=== PATIENT | male | born 1980 | race Caucasian/White ===

== ENCOUNTER 2025-02-17 13:15 | Emergency (ER) | payer MEDICAID, OTHER ==
[~2025-02-17] VITALS: Ht 203.2 cm; Wt 78.3 kg
--- NOTE | 2025-02-17 14:15 | ED.PDOC ---
[place]. trauma (HPI) HPI Comments A 44 year old male presents to the ED c/o left wrist pain and lower back pain s/p fall. Patient states he was standing on a ladder while cutting a tree earlier today and he accidentally slipped off of the third step. Patient reports he tried to catch himself using his left hand and is now experiencing left wrist pain with swelling that is worse with movement. Patient reports he is also experiencing lower back pain. Patient denies head injury, neck injury, LOC, saddle anesthesia, urinary incontinence, bowel incontinence, numbness/tingling of extremities. No other symptoms or modifying factors reported at this time. Chief Complaint: Fall Injury Time Seen by MD: 13:40 Reviewed notes: Nurses Notes, Medications, Allergies Allergies: Coded Allergies: NO KNOWN ALLERGIES (Unverified , 02/17/25) Home Meds Active Scripts Hydrocodone-Acetaminophen (Hydrocodone Bitartrate/AC 5-325 mg) 1 Tab Tab, 1 TAB PO BS for 5 Days, #5 TAB Prov:LATIA MAGUIRE MD 02/19/25 Hydrocodone-Acetaminophen (Hydrocodone Bitartrate/AC 5-325 mg) 1 Tab Tab, 1 TAB PO Q8HP PRN for 2 Days, #6 TAB 0 Refills Prov:CAITLIN JASON NP 02/17/25 Information Source: Patient Mode of Arrival: Ambulatory Severity: Moderate Timing: Hours Duration: Since onset, Hours Prehospital treatment: None Location: Back, (L) Wrist Location of laceration: None Mechanism: Fall Associated signs and symtoms: None Past Medical History PAST MEDICAL HISTORY: Denies Surgical History: Denies all surgeries Family History Family History: Reviewed,noncontributory to illness Social History Smoker: Non-Smoker Alcohol: Denies ETOH Use Drugs: Denies Drug Use Lives In: Home Constitutional: denies: chills, diaphoresis, fatigue, fever, malaise, sweats, weakness, others EENTM: denies: blurred vision, double vision, ear bleeding, ear discharge, ear drainage, ear pain, ear ringing, eye pain, eye redness, hearing loss, mouth pain, mouth swelling, nasal discharge, nose bleeding, nose congestion, nose pain, photophobia, tearing, throat pain, throat swelling, voice changes, others Respiratory: denies: cough, hemoptysis, orthopnea, SOB at rest, shortness of breath, SOB with excertion, stridor, wheezing, others Cardiovascular: denies: chest pain, dizzy spells, diaphoresis, Dyspnea on exertion, edema, irregular heart beat, left arm pain, lightheadedness, palpitations, PND, syncope, others Gastrointestinal: denies: abdomen distended, abdominal pain, blood streaked bowels, constipated, diarrhea, dysphagia, difficulty swallowing, hematemesis, melena, nausea, poor appetite, poor fluid intake, rectal bleeding, rectal pain, vomiting, others Neurological: denies: dizziness, fainting, headache, left sided numbness, left sided weakness, numbness, paresthesia, pre-existing deficit, right sided numbness, right sided weakness, seizure, speech problems, tingling, tremors, weakness, others Musculoskeletal: reports: back pain (Lower back pain), others (Left wrist pain); denies: gout, joint pain, joint swelling, muscle pain, muscle stiffness, neck pain Integumetry: denies: bruises, change in color, change in hair/nails, dryness, laceration, lesions, lumps, rash, wounds, others Allergic/Immunocompromised: denies: Difficulty Healing, Frequent Infections, Hives, Itching, others Hematologic/Lymphatic: denies: anemia, blood clots, easy bleeding, easy bruising, swollen glands, others Endocrine: denies: excessive hunger, excessive sweating, excessive thirst, excessive urination, flushing, intolerance to cold, intolerance to heat, unexplained weight gain, unexplained weight loss, others Psychiatric: denies: anxiety, bipolar disorder, depression, hopeless, panic disorder, schizophrenia, sleepless, suicidal, others All Other Systems: Reviewed and Negative Physical Exam General Appearance: No Apparent Distress, Normal HEENT: Normal ENT Inspection, Pharynx Normal, TMs Normal Neck: Full Range of Motion, Non-Tender, Normal, Normal Inspection Respiratory: Chest Non-Tender, Lungs Clear, No Accessory Muscle Use, No Respiratory Distress, Normal Breath Sounds Cardiovascular: No Edema, No JVD, No Murmur, No Gallop, Normal Peripheral Pulses, Regular Rate/Rhythm Breast Exam: Deferred Gastrointestinal: No Organomegaly, Non Tender, No Pulsatile Mass, Normal Bowel Sounds, Soft Genitalia: Deferred Pelvic: Deferred Rectal: Deferred Extremities: No calf tenderness, Normal capillary refill, No pedal edema, Tender (Tenderness upon palpation noted to left wrist), Other (Swelling and deformity noted to volar and dorsal aspect of left wrist. No open wounds. Neurovascularly sensation intact. Radial pulses 2+. Cap refill less than 3 seconds) Musculoskeletal : Apperance: Normal Neurologic: Alert, oil fire specialist II-XII nml as Tested, No Motor Deficits, Normal Affect, Normal Mood, No Sensory Deficits Cerebellar Function: Normal Reflexes: Normal Skin: Dry, Normal Color, Warm Lymphatic: No Adenopathy Was a procedure done? Was a procedure done?: No Differential Diagnosis Multiple Trauma: Other (Fracture, dislocation) X-Ray, Labs, Meds, VS Vital Signs Date Time Temp Pulse Resp B/P (MAP) Pulse Ox O2 Delivery O2 Flow Rate FiO2 02/17/25 15:58 86 18 98 Room Air 02/17/25 15:58 98.4 86 18 131/80 (97) 98 98.4 02/17/25 13:30 98.7 96 17 136/90 (105) 97 98.7 CLINICAL INDICATION: Fall TECHNIQUE: 3 radiographic views of the left wrist were obtained. Comparison: None FINDINGS/IMPRESSION: There is acute comminuted fracture of the distal radius with intra-articular extension and dorsal angulation. There is also acute mildly displaced fracture of the ulnar styloid. There is associated adjacent soft tissue edema of the wrist and distal forearm. ATED BY: JACLYN PAYTON DO DICTATED DATE/TIME: 02/17/25 1500 SIGNED BY: JACLYN PAYTON DO SIGNED DATE/TIME: 02/17/25 1500 CC: INDICATION: fall from ladder TECHNIQUE: 4 views of the lumbar spine were obtained. COMPARISON: None FINDINGS: There are no acute fractures or subluxations of the lumbar spine. Subtle cortical angulation of the coccyx. IMPRESSION: Subtle cortical angulation of the coccyx may represent normal variant versus minimally displaced fracture. Clinical correlation advised. Otherwise, no acute fracture or subluxation of the lumbar spine. ATED BY: JUSTEN GARCÍA MD DICTATED DATE/TIME: 02/17/25 1500 SIGNED BY: JUSTEN GARCÍA MD SIGNED DATE/TIME: 02/17/25 1500 CC: X-Ray, Labs, Meds, VS Comment A 44 year old male presents to the ED c/o left wrist pain and lower back pain s/p fall Today Patient arrives alert and oriented, ABC's intact, afebrile, vital signs stable, saturating well in room air Diagnostic imaging ordered by me and results interpreted by radiology : XR wrist LT, XR L-spine There is acute comminuted fracture of the distal radius with intra-articular extension and dorsal angulation. There is also acute mildly displaced fracture of the ulnar styloid. There is associated adjacent soft tissue edema of the wrist and distal forearm. Patient was given:[place] 7.5/325mg PO. Tolerated medications with no adverse reaction. A volar splint was placed on the patient's left wrist. Neurovascular sensation was intact on re-evaluation Workup: XR Wrist Findings: Fracture Patient does not currently demonstrate complications of fracture such as compart ment syndrome, arterial or nerve injury. Interventions: Disposition: Patient will be discharged with strict return precautions and follow up with primary MD within 24-48 hours for further evaluation including referral to an orthopedist for follow up within the next 4-7 days for outpatient definitive fracture management. Consult: Orthopedic Surgery. Orthopedic: 1530: I have consulted the on0-call physician relations specialist, Dr. Vu regarding this patient's x ray results and he has said the patient can follow up with [facility] tomorrow from [phone] tomorrow morning to schedule outpatient surgery for his fracture. Additional MDM Review of External, Non-ED records: External records reviewed. Discussion with independent historian History obtained from the patient Chronic conditions affecting care: None Social determinants of health affecting care: None Consideration of admission (observation or admission): I considered escalation of care to admission for this patient, however given the reassuring workup, the patient is safe for outpatient management. Discussion with the Radiology: No Tests considered but not performed: None Prescription medication considered but not given: Images Reviewed?: Images reviewed and evaluated by me Time of 1ST Reevaluation: 16:09 Reevaluation 1ST: Improved Consultation: Other (Orthopedic: 1530: I have consulted the on0-call physician relations specialist, Dr. Vu regarding this patient's x ray results and he has said the patient can follow up with the Ortho clinic at this hospital tomorrow from [phone] tomorrow morning to schedule outpatient surgery for his fracture.) Patient Education/Counseling: Diagnosis, Treatment, Need For Follow Up Family Education/Counseling: Diagnosis, Treatment, Need For Follow Up Departure 1 Departure Time of Disposition: 16:11 Impression: Primary Impression: Radius distal fracture Qualified Codes: S52.502A - Unspecified fracture of the lower end of left radius, initial encounter for closed fracture Additional Impression: Fracture of ulnar styloid Qualified Codes: S52.612A - Displaced fracture of left ulna styloid process, initial encounter for closed fracture Disposition: 01 HOME / SELF CARE / HOMELESS Condition: Stable Additional Instructions: Orthopedic: 1530: I have consulted the on-call physician relations specialist, Dr. Vu regarding this patient's x ray results and he has said the patient can follow up with the Orth[facility] tomorrow from [phone] tomorrow morning to schedule outpatient surgery for his fracture. e-Prescriptions Hydrocodone-Acetaminophen (Hydrocodone Bitartrate/AC 5-325 mg) 1 Tab Tab 1 TAB PO Q8HP PRN for 2 Days, #6 TAB 0 Refills Prov: CAITLIN JASON NP 02/17/25 Discharged With: Self Critical Care Note Critical Care Time?: No Stability Stability form required: No Heart Score Heart Score: Heart Score Response (Comments) Value History N/A 0 EKG N/A 0 Age N/A 0 Risk Factors N/A 0 Troponin N/A 0 Total 0 I personally scribed for CAITLIN JASON SPIN TANK TENDER ([email or web address]) on 02/17/25 at 14:15. Electronically submitted by Malcolm Thomas ([email or web address]). I personally scribed for CAITLIN JASON SPIN TANK TENDER ([email or web address]) on 02/17/25 at 15:34. Electronically submitted by Malcolm Thomas ([email or web address]). I personally scribed for CAITLIN JASON SPIN TANK TENDER ([email or web address]) on 02/17/25 at 15:51. Electronically submitted by Malcolm Thomas ([employer]). I personally scribed for CAITLIN JASON SPIN TANK TENDER ([email or web address]) on 02/17/25 at 16:04. Electronically submitted by Malcolm Thomas ([employer]). CAITLIN JASON SPIN TANK TENDER Feb 17, 2025 14:15
--- NOTE | 2025-02-17 15:02 | DVH ---
INDICATION: fall from ladder TECHNIQUE: 4 views of the lumbar spine were obtained. COMPARISON: None FINDINGS: There are no acute fractures or subluxations of the lumbar spine. Subtle cortical angulation of the coccyx. IMPRESSION: Subtle cortical angulation of the coccyx may represent normal variant versus minimally displaced frac ture. Clinical correlation advised. Otherwise, no acute fracture or subluxation of the lumbar spine.
--- NOTE | 2025-02-17 15:02 | DVH ---
CLINICAL INDICATION: Fall TECHNIQUE: 3 radiographic views of the left wrist were obtained. Comparison: None FINDINGS/IMPRESSION: There is acute comminuted fracture of the distal radius with intra-articular extension and dorsal ang ulation. There is also acute mildly displaced fracture of the ulnar styloid. There is associated adj acent soft tissue edema of the wrist and distal forearm.
[2025-02-17] MEDS: HYDROcodone-ACET 7.5/325MG TAB PO ONE (15:51)
[2025-02-17 15:58] VITALS: BP 131/80; PULSE 86; RESP 18; TEMP 98.4; O2SAT 98
[2025-02-17] MEDS ORDERED: HYDR-4902 PO (16:12)
== END 2025-02-17 16:47 | disposition home or self-care (01) ==
LOC: ER 13:15
DX: S52.572A Other intraarticular fracture of lower end of left radius, initial encounter for closed fracture (principal); S52.612A Displaced fracture of left ulna styloid process, initial encounter for closed fracture; W11.XXXA Fall on and from ladder, initial encounter; Y93.89 Activity, other specified; Y92.89 Other specified places as the place of occurrence of the external cause; Y99.8 Other external cause status
CPT/HCPCS: 29125; 72100; 73110

== ENCOUNTER 2025-02-19 13:09 | Emergency (ER) | payer MEDICAID ==
[~2025-02-19] VITALS: Ht 203.2 cm; Wt 77.2 kg
[~2025-02-19 13:09] MED LIST: HYDR-4902 PO
--- NOTE | 2025-02-19 14:06 | ED.PDOC ---
History of Present Illness HPI Comments 44-year-old male with no PMHx presents with a chief complaint of muscle pain s/p fracture x last week. Patient states that he fractured his left forearm last week and has been trying to follow up with orthopedics and pain management, but is waiting for prior authorization from [facility]. Patient mentions that he is just here for pain control/management until he can be seen properly at pain management clinic. Time Seen by MD: 14:00 Reviewed Notes: Medications, Allergies Allergies: Coded Allergies: NO KNOWN ALLERGIES (Unverified , 02/17/25) Home Meds Active Scripts Hydrocodone-Acetaminophen (Hydrocodone Bitartrate/AC 5-325 mg) 1 Tab Tab, 1 TAB PO Q8HP PRN for 2 Days, #6 TAB 0 Refills Prov:ERENCAITLINFunmi Banda NP 02/17/25 Information Source: Patient Mode of Arrival: Ambulatory Severity: Moderate Timing: Days Duration: Since onset Prehospital treatment: None Past Medical History PAST MEDICAL HISTORY: Denies Surgical History: Denies all surgeries Family History Family History: Reviewed,noncontributory to illness Social History Smoker: Non-Smoker Alcohol: Denies ETOH Use Drugs: Denies Drug Use Lives In: Home Constitutional: denies: chills, diaphoresis, fatigue, fever, malaise, sweats, weakness, others EENTM: denies: blurred vision, double vision, ear bleeding, ear discharge, ear drainage, ear pain, ear ringing, eye pain, eye redness, hearing loss, mouth pain, mouth swelling, nasal discharge, nose bleeding, nose congestion, nose pain, photophobia, tearing, throat pain, throat swelling, voice changes, others Respiratory: denies: cough, hemoptysis, orthopnea, SOB at rest, shortness of breath, SOB with excertion, stridor, wheezing, others Cardiovascular: denies: chest pain, dizzy spells, diaphoresis, Dyspnea on exer tion, edema, irregular heart beat, left arm pain, lightheadedness, palpitations, PND, syncope, others Gastrointestinal: denies: abdomen distended, abdominal pain, blood streaked bowels, constipated, diarrhea, dysphagia, difficulty swallowing, hematemesis, melena, nausea, poor appetite, poor fluid intake, rectal bleeding, rectal pain, vomiting, others Genitourinary: denies: burning, dysuria, flank pain, frequency, hematuria, incontinence, penile discharge, penile sore, pain, testicle pain, testicle swelling, urgency, others Neurological: denies: dizziness, fainting, headache, left sided numbness, left sided weakness, numbness, paresthesia, pre-existing deficit, right sided numbness, right sided weakness, seizure, speech problems, tingling, tremors, weakness, others Musculoskeletal: reports: muscle pain; denies: back pain, gout, joint pain, joint swelling, muscle stiffness, neck pain, others Integumetry: denies: bruises, change in color, change in hair/nails, dryness, laceration, lesions, lumps, rash, wounds, others Allergic/Immunocompromised: denies: Difficulty Healing, Frequent Infections, Hives, Itching, others Hematologic/Lymphatic: denies: anemia, blood clots, easy bleeding, easy bruising, swollen glands, others Endocrine: denies: excessive hunger, excessive sweating, excessive thirst, excessive urination, flushing, intolerance to cold, intolerance to heat, unexplained weight gain, unexplained weight loss, others Psychiatric: denies: anxiety, bipolar disorder, depression, hopeless, panic disorder, schizophrenia, sleepless, suicidal, others All Other Systems: Reviewed and Negative Physical Exam General Appearance: Moderate Distress, Normal HEENT: Normal ENT Inspection, Pharynx Normal, TMs Normal Neck: Full Range of Motion, Non-Tender, Normal, Normal Inspection Respiratory: Chest Non-Tender, Lungs Clear, No Accessory Muscle Use, No Respiratory Distress, Normal Breath Sounds Cardiovascular: No Edema, No JVD, No Murmur, No Gallop, Normal Peripheral Pulses, Regular Rate/Rhythm Breast Exam: Deferred Gastrointestinal: No Organomegaly, Non Tender, No Pulsatile Mass, Normal Bowel Sounds, Soft Genitalia: Deferred Pelvic: Deferred Rectal: Deferred Extremities: No calf tenderness, Normal capillary refill, Normal inspection, Normal range of motion, Non-tender, No pedal edema Musculoskeletal : Apperance: Normal Neurologic: Alert, glaze maker II-XII nml as Tested, No Motor Deficits, Normal Affect, Normal Mood, No Sensory Deficits Cerebellar Function: NOT DONE Reflexes: NOT DONE Skin: Dry, Normal Color, Warm, Other (Splint in the left forearm) Peripheral Pulses: 3+ Radial (R), 3+ Radial (L) Lymphatic: No Adenopathy Was a procedure done? Was a procedure done?: No Differential Dx Considerations may include: Pain control X-Ray, Labs, Meds, VS Vital Signs Date Time Temp Pulse Resp B/P (MAP) Pulse Ox O2 Delivery O2 Flow Rate FiO2 02/19/25 14:17 97.9 106 16 141/74 (96) 96 97.9 Current Medications Medications (Trade) Dose Ordered Sig/Diana Route Start Time Stop Time Status Last Admin Acetaminophen/ Hydrocodone Bitart ([place] 10/325MG Tab) 1 tab ONCE ONCE PO 02/19/25 14:15 02/19/25 14:16 DC 02/19/25 14:43 Patient alert. Status post forearm injury. Vitals stable. Answering questions. Was given [place]. No leg swelling. No shortness a breath. No chest pain. Saturation pristine on room air. Was given prescription of [place]. Good pulses. Explained to the patient. Was told to follow up with his primary care physician. Was told to come back if there is any problem. Time of 1ST Reevaluation: 14:30 Reevaluation 1ST: Unchanged Patient Education/Counseling: Diagnosis, Treatment, Need For Follow Up Family Education/Counseling: No Family Present SEPSIS Sepsis Screen Vital Signs Date Time Temp Pulse Resp B/P (MAP) Pulse Ox O2 Delivery O2 Flow Rate FiO2 02/19/25 14:17 97.9 106 16 141/74 (96) 96 97.9 Medications Medications Dose Ordered Sig/Diana Route Start Time Stop Time Status Last Admin Dose Admin Acetaminophen/ Hydrocodone Bitart 1 tab ONCE ONCE PO 02/19/25 14:15 02/19/25 14:16 DC 02/19/25 14:43 Departure 1 Departure Time of Disposition: 15:37 Impression: Primary Impression: Fracture of ulnar styloid Qualified Codes: S52.612A - Displaced fracture of left ulna styloid process, initial encounter for closed fracture Additional Impression: Radius distal fracture Qualified Codes: S52.532S - Colles' fracture of left radius, sequela Disposition: 01 HOME / SELF CARE / HOMELESS Condition: Good e-Prescriptions Hydrocodone-Acetaminophen (Hydrocodone Bitartrate/AC 5-325 mg) 1 Tab Tab 1 TAB PO BS for 5 Days, #5 TAB Prov: LATIA MAGUIRE MD 02/19/25 Discharged With: Self Critical Care Note Critical Care Time?: No Stability Stability form required: No Heart Score Heart Score: Heart Score Response (Comments) Value History N/A 0 EKG N/A 0 Age N/A 0 Risk Factors N/A 0 Troponin N/A 0 Total 0 I personally scribed for LATIA MAGUIRE MD ([email or web address]) on 02/19/25 at 14:06. Electronically submitted by Que Villegas ([email or web address]). LATIA MAGUIRE MD Feb 19, 2025 14:06
[2025-02-19] MEDS: HYDROcodone-ACET 10/325MG TAB PO ONE (14:43)
[2025-02-19] MEDS ORDERED: HYDR-4902 PO (15:39)
[2025-02-19 15:43] VITALS: BP 124/80; PULSE 92; RESP 17; TEMP 97.9; O2SAT 96
== END 2025-02-19 15:48 | disposition home or self-care (01) ==
LOC: ER 13:09
DX: S52.612A Displaced fracture of left ulna styloid process, initial encounter for closed fracture (principal); S52.502A Unspecified fracture of the lower end of left radius, initial encounter for closed fracture; Z79.899 Other long term (current) drug therapy; X58.XXXA Exposure to other specified factors, initial encounter; Y93.89 Activity, other specified; Y92.89 Other specified places as the place of occurrence of the external cause; Y99.8 Other external cause status

== ENCOUNTER 2025-03-10 10:35 | Inpatient (IN) | payer MEDICAID ==
[~2025-03-10] VITALS: Ht 203.2 cm; Wt 80.2 kg
--- NOTE | 2025-03-10 11:09 | ED.PDOC ---
Musculoskeletal HPI Comments 44 y/o M, presents to the ED for CC of s/p fall fracture. Patient states, that he fell off a ladder x4zaooi ago on (02/17/25) and was supposed to undergo surgery for a left distal radius fracture however, d/t insurance complications he was unable to have the surgery. Patient reports, that he was seen at [facility] for possible surgery x3days ago; endorses surgery being canceled. At this time patient c/o 10/10 pain to his left arm. Patient denies fever, chills, nausea, or vomiting. No other symptoms or modifying factors present at this time... Chief Complaint: Upper Extremity Time Seen by MD: 11:05 Primary Care Provider: UNKNOWN Reviewed Notes: Nurses Notes, Medications, Allergies Allergies: Coded Allergies: NO KNOWN ALLERGIES (Unverified , 02/17/25) Home Meds Active Scripts Hydrocodone-Acetaminophen (Hydrocodone Bitartrate/AC 10-325 mg) 1 Tab Tab, 1 TAB PO TID for 10 Days, #30 TAB Prov:VINCENZO MOSELEY MD 03/12/25 Discontinued Scripts Hydrocodone-Acetaminophen (Hydrocodone Bitartrate/AC 5-325 mg) 1 Tab Tab, 1 TAB PO BS for 5 Days, #5 TAB Prov:LATIA MAGUIRE MD 02/19/25 Hydrocodone-Acetaminophen (Hydrocodone Bitartrate/AC 5-325 mg) 1 Tab Tab, 1 TAB PO Q8HP PRN for 2 Days, #6 TAB 0 Refills Prov:CAITLIN JASON NP 02/17/25 Information Source: Patient Mode of Arrival: Ambulatory Location: Left Extremity Location: Arm Timing: Weeks Prehospital treatment: None Severity: Moderate Able to Move Extremity: No Pain: Moderate Mechanism: Other (FALL) Circumstances: Fall Onset of Symptoms: After Trauma Symptoms: Pain DVT Risk Factors: NONE Last Tetanus: Unknown Associated signs and symptoms: Arm pain, Wrist pain Past Medical History PAST MEDICAL HISTORY: Denies Surgical History: Denies all surgeries Family History Family History: Reviewed,noncontributory to illness Social History Smoker: Non-Smoker Alcohol: Denies ETOH Use Drugs: Denies Drug Use Lives In: Home Constitutional: denies: chills, diaphoresis, fatigue, fever, malaise, sweats, weakness, others EENTM: denies: blurred vision, double vision, ear bleeding, ear discharge, ear drainage, ear pain, ear ringing, eye pain, eye redness, hearing loss, mouth pain, mouth swelling, nasal discharge, nose bleeding, nose congestion, nose pain, photophobia, tearing, throat pain, throat swelling, voice changes, others Respiratory: denies: cough, hemoptysis, orthopnea, SOB at rest, shortness of breath, SOB with excertion, stridor, wheezing, others Cardiovascular: denies: chest pain, dizzy spells, diaphoresis, Dyspnea on exertion, edema, irregular heart beat, left arm pain, lightheadedness, palpitations, PND, syncope, others Gastrointestinal: denies: abdomen distended, abdominal pain, blood streaked bowels, constipated, diarrhea, dysphagia, difficulty swallowing, hematemesis, melena, nausea, poor appetite, poor fluid intake, rectal bleeding, rectal pain, vomiting, others Genitourinary: denies: burning, dysuria, flank pain, frequency, hematuria, incontinence, penile discharge, penile sore, pain, testicle pain, testicle swelling, urgency, others Neurological: denies: dizziness, fainting, headache, left sided numbness, left sided weakness, numbness, paresthesia, pre-existing deficit, right sided nu mbness, right sided weakness, seizure, speech problems, tingling, tremors, weakness, others Musculoskeletal: reports: others (left arm pain); denies: back pain, gout, joint pain, joint swelling, muscle pain, muscle stiffness, neck pain Integumetry: denies: bruises, change in color, change in hair/nails, dryness, laceration, lesions, lumps, rash, wounds, others Allergic/Immunocompromised: denies: Difficulty Healing, Frequent Infections, Hives, Itching, others Hematologic/Lymphatic: denies: anemia, blood clots, easy bleeding, easy bruising, swollen glands, others Endocrine: denies: excessive hunger, excessive sweating, excessive thirst, excessive urination, flushing, intolerance to cold, intolerance to heat, unexplained weight gain, unexplained weight loss, others Psychiatric: denies: anxiety, bipolar disorder, depression, hopeless, panic disorder, schizophrenia, sleepless, suicidal, others All Other Systems: Reviewed and Negative Physical Exam General Appearance: No Apparent Distress, Normal HEENT: Normal ENT Inspection, Pharynx Normal Neck: Full Range of Motion, Non-Tender, Normal, Normal Inspection Respiratory: Chest Non-Tender, Lungs Clear, No Accessory Muscle Use, No Respiratory Distress, Normal Breath Sounds Cardiovascular: No Murmur, No Gallop, Regular Rate/Rhythm Breast Exam: Deferred Gastrointestinal: No Organomegaly, Non Tender, No Pulsatile Mass, Normal Bowel Sounds, Soft Genitalia: Deferred Pelvic: Deferred Rectal: Deferred Extremities: No calf tenderness, Normal capillary refill, Normal inspection, Normal range of motion, Non-tender, No pedal edema Musculoskeletal : Location: Left Extremity Location: Arm (left distal radius Fx. Open wounds. No ecchymosis . Pain with flexion-extension of the wrist. Radial pulses 2+. 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 Was a procedure done?: No Differential Diagnosis EXT Differential Diagnosis: Fracture X-Ray, Labs, Meds, VS Vital Signs Date Time Temp Pulse Resp B/P (MAP) Pulse Ox O2 Delivery O2 Flow Rate FiO2 03/10/25 13:36 98.9 89 20 101/67 (78) 93 98.9 03/10/25 11:09 89 18 95 Room Air 03/10/25 11:09 90 18 131/78 (95) 95 03/10/25 11:04 99.3 98 17 135/77 (96) 96 99.3 Lab Test 03/10/25 11:21 03/10/25 11:00 Range/Units White Blood Count 10.7 4.4-10.8 10^3/uL Red Blood Count 4.08 L 4.5-5.90 10^6/uL Hemoglobin 14.2 13.5-17.5 g/dL Hematocrit 41.7 41.0-53.0 % Mean Corpuscular Volume 102.1 H 80.0-100.0 fL Mean Corpuscular Hemoglobin 34.8 H 28.0-32.0 pg Mean Corpuscular Hemoglobin Concent 34.1 32.0-36.0 g/dL Red Cell Distribution Width 14.5 H 11.8-14.3 % Platelet Count 386 140-450 10^3/uL Mean Platelet Volume 8.2 6.9-10.8 fL Neutrophils (%) (Auto) 69.4 37.0-80.0 % Lymphocytes (%) (Auto) 21.0 10.0-50.0 % Monocytes (%) (Auto) 6.8 0.0-12.0 % Eosinophils (%) (Auto) 1.8 0.0-7.0 % Basophils (%) (Auto) 1.0 0.0-2.0 % Neutrophils # (Auto) 7.4 1.6-8.6 10 ^3/uL Lymphocytes # (Auto) 2.2 0.4-5.4 10 ^3/uL Monocytes # (Auto) 0.7 0-1.3 10 ^3/uL Eosinophils # (Auto) 0.2 0-0.8 10 ^3/uL Basophils # (Auto) 0.1 0-0.2 10 ^3/uL Nucleated Red Blood Cells 0.0 % Sodium Level 138 136-145 mmol/L Potassium Level 3.8 3.5-5.1 mmol/L Chloride Level 107 98-107 mmol/L Carbon Dioxide Level 21 20-31 mmol/L Anion Gap 10 5-15 Blood Urea Nitrogen 10 9-23 mg/dL Creatinine 1.04 0.700-1.30 mg/dL Glomerular Filtration Rate Calc 91 >90 mL/min BUN/Creatinine Ratio 9.6 L 10.0-20.0 Serum Glucose 189 H 74-106 mg/dL Hemoglobin A1c 4.9 <5.7 % A1C Calcium Level 10.1 8.7-10.4 mg/dL Hepatitis B Surface Antigen Negative Negative Hepatitis C Antibody Negative Negative Urine Color Light-yellow Yellow Urine Clarity Clear Clear Urine pH 5.5 5.0-9.0 Urine Specific [place] 1.017 1.001-1.035 Urine Protein Negative Negative Urine Ketones Negative Negative Urine Blood Negative Negative /uL Urine Nitrite Negative Negative Urine Bilirubin Negative Negative Urine Urobilinogen Normal Negative mg/dL Urine Leukocyte Esterase Negative Negative /uL Urine RBC None seen 0 - 3 /hpf Urine Microscopic WBC 1 0-3 /HPF Urine Squamous Epithelial Cells None seen <5 /hpf Urine Bacteria None seen None Seen /hpf Urine Mucus Few None Seen Urine Sperm Present None Seen /hpf Urine Glucose Normal Normal mg/dL [facility] [id number] [facility] [address] Ph: [phone] DIAGNOSTIC IMAGING Diagnostic Imaging Report : [id number] Signed PATIENT: LUCILLE HALEY ACCT: [id number] UNIT: [id number] : 1980 LOC: ER ROOM / BED: / AGE / SEX: 44 / M ADM STATUS: REG ER SERVICE 1106 ORDERING PHYSICIAN: CAITLIN JASON NP PROCEDURE(s): LWRI - L WRIST 3+ VIEW XRAY REASON: hx of fracture. RuiYison study ORDER NUMBER(s): [id number], ACCESSION NUMBER(s): [id number] CLINICAL INDICATION: hx of fracture. neymarson study TECHNIQUE: XY L WRIST 3+ VIEW XRAY Comparison: XY L WRIST 3+ VIEW XRAY on DOS: 02/17/25 FINDINGS/IMPRESSION: : Overlying cast obscures bony and soft-tissue detail. Redemonstration of displaced fractures of the styloid process of the ulna and distal radial metaphysis. ATED BY: JUSTEN GARCÍA MD DICTATED DATE/TIME: 03/10/251134 SIGNED BY: JUSTEN GARCÍA MD SIGNED DATE/TIME: 03/10/25 113 CC: X-Ray, Labs, Meds, VS Comment 44 y/o M, presents to the ED for CC of s/p fall fracture. Patient arrives alert and oriented, ABC's intact, afebrile, vital signs stable, saturating well in room air Diagnostic imaging ordered by me and results interpreted by radiology : LEFT WRIST XY Overlying cast obscures bony and soft-tissue detail. Redemonstration of displaced fractures of the styloid process of the ulna and distal radial metaphysis. The patient was given [place] 10 in the emergency department with no adverse reactions. The patient's workup reveals that the patient needs further evaluation and ortho evaluation Patient verbalized understanding of the above and is awaiting further evaluation by the admitting service. Time of 1ST Reevaluation: 11:35 Reevaluation 1ST: Unchanged Patient Education/Counseling: Diagnosis, Treatment Family Education/Counseling: No Family Present Departure 1 Departure Time of Disposition: 12:36 Impression: Primary Impression: Fracture of ulnar styloid Qualified Codes: S52.612A - Displaced fracture of left ulna styloid process, initial encounter for closed fracture Additional Impression: Radius distal fracture Qualified Codes: S52.502A - Unspecified fracture of the lower end of left radius, initial encounter for closed fracture Disposition: ADMITTED INPATIENT Condition: Fair e-Prescriptions Hydrocodone-Acetaminophen (Hydrocodone Bitartrate/AC 10-325 mg) 1 Tab Tab 1 TAB PO TID for 10 Days, #30 TAB Prov: VINCENZO MOSELEY MD 03/12/25 Critical Care Note Critical Care Time?: No Stability Stability form required: No Heart Score Heart Score: Heart Score Response (Comments) Value History N/A 0 EKG N/A 0 Age N/A 0 Risk Factors N/A 0 Troponin N/A 0 Total 0 I personally scribed for CAITLIN JASON STOCKBROKER ([email or web address]) on 03/10/25 at 11:09. Electronically submitted by Milvia Bowie ([email or web address]). I personally scribed for CAITLIN JASON STOCKBROKER ([email or web address]) on 03/10/25 at 11:30. Electronically submitted by Milvia Bowie ([email or web address]). I personally scribed for CAITLIN JASON STOCKBROKER ([email or web address]) on 03/10/25 at 12:17. Electronically submitted by Milvia Bowie ([email or web address]). I personally scribed for CAITLIN JASON STOCKBROKER ([email or web address]) on 03/10/25 at 12:47. Electronically submitted by Milvia Bowie ([email or web address]). CAITLIN JASON STOCKBROKER Mar 10, 2025 11:09
--- NOTE | 2025-03-10 11:38 | DVH ---
CLINICAL INDICATION: hx of fracture. comparisson study TECHNIQUE: XY L WRIST 3+ VIEW XRAY Comparison: XY L WRIST 3+ VIEW XRAY on DOS: 02/17/25 FINDINGS/IMPRESSION: : Overlying cast obscures bony and soft-tissue detail. Redemonstration of displaced fractures of the s tyloid process of the ulna and distal radial metaphysis.
[2025-03-10 11:49] LABS: Urine Protein, UAD Negative (Negative)
[2025-03-10 11:59] LABS: Hematocrit 41.7 % (41.0-53.0); Hemoglobin 14.2 g/dL (13.5-17.5); Nucleated Red Blood Cells % 0.0 %
[2025-03-10 12:02] LABS: Mean Corpuscular Hemoglobin 34.8 pg (28.0-32.0); Mean Corpuscular Volume 102.1 fL (80.0-100.0)
[2025-03-10 12:06] LABS: Chloride 107 mmol/L (98-107); Potassium 3.8 mmol/L (3.5-5.1); Sodium 138 mmol/L (136-145)
[2025-03-10 12:07] LABS: Anion Gap 10 (5-15); Calcium 10.1 mg/dL (8.7-10.4); Carbon Dioxide 21 mmol/L (20-31)
[2025-03-10 12:12] LABS: BUN/Creatinine Ratio 9.6 (10.0-20.0); Blood Urea Nitrogen 10 mg/dL (9-23); Glucose 189 mg/dL (74-106)
[2025-03-10] MEDS ORDERED: DOCUSATE SOD 100 MG CAP PO PRN (13:00)
[2025-03-10] MEDS ORDERED: ACETAMINOPHEN 325 MG TAB PO PRN (13:00)
[2025-03-10] MEDS: HYDROcodone-ACET 10/325MG TAB PO ONE (13:50)
--- NOTE | 2025-03-10 15:50 | DVHHP2 ---
History of Present Illness Reason for Visit: Fracture of ulnar styloid History of Present Illness The patient is a 44-year-old male who denies past medical history presented to [facility] ED with complaint of left wrist pain. Patient reports that he fell off a ladder 3 weeks ago and was supposed to undergo surgery for left distal radius fracture, however, given eligibility of insurance, he was unable to have the surgery done at [facility]. Patient was seen and evaluated in the ED, laboratory data shows WBC 10.7, platelets 386, sodium 138, potassium 3.8, BUN 10, creatinine 1.04, glucose 189, hemoglobin A1c 4.9, calcium 10.1, blood pressure 131/78, heart rate 90, temperature 99.3 F, O2 saturation 95% on room air. Left wrist x-ray revealing overlying cast obscures bony and soft tissue detail; redemonstration of displaced fractures of the styloid process of the ulna and distal radial metaphysis. Please see medication orders section in the computer. On my assessment, patient denied chest pain, no headache, no dizziness, no shortness of breaths, no nausea, no vomiting, no fever, no chills. Patient was admitted for further evaluation and medical management. Past Medical History Denies past medical history Past Surgical History Denies all surgeries Family History Reviewed, noncontributory to the management of this case. Past Social History The patient lives at home, denies smoking, alcohol or illicit drugs abuse. Review of Systems Constitutional: No: Fever, Chills, Sweats, Weakness, Malaise, Other Eyes: No: Pain, Vision change, Conjunctivae inflammation, Eyelid inflammation, Other, Redness ENT: No: Ear pain, Ear discharge, Nose pain, Nose discharge, Nose congestion, Mouth pain, Mouth swelling, Throat pain, Throat swelling, Other Respiratory: No: Cough, Dry, Shortness of breath, SOB with excertion, Wheezing, Hemoptysis, Pleuritic Pain, Sputum, Wheezing, Other Cardiovascular: No: Chest Pain, Palpitations, Orthopnea, Paroxysmal Noc. Dyspnea, Edema, Lt Headedness, Other Gastrointestinal: No: Nausea, Vomiting, Abdominal Pain, Diarrhea, Constipation, Melena, Hematochezia, Other Genitourinary: No Dysuria, No Frequency, No Incontinence, No Hematuria, No Retention, No Other Musculoskeletal: other (left arm pain); No: neck pain, shoulder pain, arm pain, back pain, hand pain, leg pain, foot pain Skin: No: Rash, Lesions, Jaundice, Bruising, Other Neurological: No: Weakness, Numbness, Incoordination, Change in speech, Confusion, Seizures, Other Allergies: Coded Allergies: NO KNOWN ALLERGIES (Unverified , 02/17/25) Medications Current Medications Medications Dose Ordered Sig/Diana Route Start Time Stop Time Status Last Admin Dose Admin Acetaminophen/ Hydrocodone Bitart 1 tab Q4HP PRN PO 03/10/25 13:00 Ondansetron HCl 4 mg Q4HP PRN IV 03/10/25 13:00 Docusate Sodium 100 mg BIDPRN PRN PO 03/10/25 13:00 Acetaminophen 650 mg Q6HP PRN PO 03/10/25 13:00 Morphine Sulfate 2 mg Q4HPRN PRN IV 03/10/25 13:00 Exam Vital Signs Vital Signs Date Time Temp Pulse Resp B/P (MAP) Pulse Ox O2 Delivery O2 Flow Rate FiO2 03/10/25 13:36 98.9 89 20 101/67 (78) 93 98.9 03/10/25 11:09 Room Air General Appearance: Alert, Oriented X3, Cooperative, No acute distress HEENT: Atraumatic, PERRLA, EOMI, Mucous membr. moist/pink Respiratory: Clear to auscultation, Normal air movement Cardiovascular: Regular rate, Normal S1, Normal S2, No murmurs Abdominal: Normal bowel sounds, Soft, No tenderness, No hepatospenomegaly, No masses Extremities: No clubbing, No cyanosis, No edema, Normal pulses, Other (Left arm tenderness) Skin: No rashes, No breakdown, No significant lesion Neuro: Normal gait, Normal speech, Normal tone, Sensation intact, Cranial nerves 3-12 NL, Reflexes 2+, Other (Pain) Psych/Mental Status: Mental status NL, Mood NL Labs/Xrays Labs Test 03/10/25 11:21 03/10/25 11:00 Range/Units White Blood Count 10.7 4.4-10.8 10^3/uL Red Blood Count 4.08 L 4.5-5.90 10^6/uL Hemoglobin 14.2 13.5-17.5 g/dL Hematocrit 41.7 41.0-53.0 % Mean Corpuscular Volume 102.1 H 80.0-100.0 fL Mean Corpuscular Hemoglobin 34.8 H 28.0-32.0 pg Mean Corpuscular Hemoglobin Concent 34.1 32.0-36.0 g/dL Red Cell Distribution Width 14.5 H 11.8-14.3 % Platelet Count 386 140-450 10^3/uL Mean Platelet Volume 8.2 6.9-10.8 fL Neutrophils (%) (Auto) 69.4 37.0-80.0 % Lymphocytes (%) (Auto) 21.0 10.0-50.0 % Monocytes (%) (Auto) 6.8 0.0-12.0 % Eosinophils (%) (Auto) 1.8 0.0-7.0 % Basophils (%) (Auto) 1.0 0.0-2.0 % Neutrophils # (Auto) 7.4 1.6-8.6 10 ^3/uL Lymphocytes # (Auto) 2.2 0.4-5.4 10 ^3/uL Monocytes # (Auto) 0.7 0-1.3 10 ^3/uL Eosinophils # (Auto) 0.2 0-0.8 10 ^3/uL Basophils # (Auto) 0.1 0-0.2 10 ^3/uL Nucleated Red Blood Cells 0.0 % Sodium Level 138 136-145 mmol/L Potassium Level 3.8 3.5-5.1 mmol/L Chloride Level 107 98-107 mmol/L Carbon Dioxide Level 21 20-31 mmol/L Anion Gap 10 5-15 Blood Urea Nitrogen 10 9-23 mg/dL Creatinine 1.04 0.700-1.30 mg/dL Glomerular Filtration Rate Calc 91 >90 mL/min BUN/Creatinine Ratio 9.6 L 10.0-20.0 Serum Glucose 189 H 74-106 mg/dL Hemoglobin A1c 4.9 <5.7 % A1C Calcium Level 10.1 8.7-10.4 mg/dL Urine Color Light-yellow Yellow Urine Clarity Clear Clear Urine pH 5.5 5.0-9.0 Urine Specific [place] 1.017 1.001-1.035 Urine Protein Negative Negative Urine Ketones Negative Negative Urine Blood Negative Negative /uL Urine Nitrite Negative Negative Urine Bilirubin Negative Negative Urine Urobilinogen Normal Negative mg/dL Urine Leukocyte Esterase Negative Negative /uL Urine RBC None seen 0 - 3 /hpf Urine Microscopic WBC 1 0-3 /HPF Urine Squamous Epithelial Cells None seen <5 /hpf Urine Bacteria None seen None Seen /hpf Urine Mucus Few None Seen Urine Sperm Present None Seen /hpf Urine Glucose Normal Normal mg/dL PATIENT: LUCILLE HALEY ACCT: [id number] UNIT: [id number] : 1980 LOC: ER ROOM / BED: / AGE / SEX: 44 / M ADM STATUS: REG ER SERVICE 1106 ORDERING PHYSICIAN: CAITLIN JASON NP PROCEDURE(s): LWRI - L WRIST 3+ VIEW XRAY REASON: hx of fracture. GFG Groupson study ORDER NUMBER(s): [id number], ACCESSION NUMBER(s): [id number] CLINICAL INDICATION: hx of fracture. comparisson study TECHNIQUE: XY L WRIST 3+ VIEW XRAY Comparison: XY L WRIST 3+ VIEW XRAY on DOS: 02/17/25 FINDINGS/IMPRESSION: : Overlying cast obscures bony and soft-tissue detail. Redemonstration of displaced fractures of the styloid process of the ulna and distal radial metaphysis. SEPSIS Sepsis Screen Date sepsis recognized/suspect: Mar 10, 2025 Time Sepsis recognized/suspect: 1100 Recent Procedure: No On Antibiotic Therapy: No Respiratory Rate >20: No Heart Rate >90: No Temp<36 C (96.8 F) or >38.3 C: No SBP <90 or MAP <65 mmHG: No New Acute Mental Status Change: No Is the patient on CPAP, BIPAP,: No Physician Orders L Wrist 3+ View Xray (03/10/25 11:06) * Orthopedic Consult (03/10/25 12:57) Allergies (03/10/25 12:57) Code Status (03/10/25 12:57) 2 Gm Sodium Diet (03/10/25 Lunch) Oxygen Per Hour (03/10/25 12:57) Hydrocodone-Acet 5/325mg Tab ([place]well 5/32 (03/10/25 13:00) Ondansetron Hcl (Zofran) (03/10/25 13:00) Docusate Sodium Capsule (Colace Capsule) (03/10/25 13:00) Complete Blood Count (03/11/25 04:00) Comprehensive Metabolic Panel (03/11/25 04:00) Condition: Serious (03/10/25 12:57) Acetaminophen Tablet (Tylenol Tablet) (03/10/25 13:00) Bedrest With Bathroom Privileg (03/10/25 12:57) Morphine Sulfate Injection (03/10/25 13:00) Sequential Compression Device (03/10/25 ) Admit (03/10/25 15:48) Nitroglycerin Sublingual (Ntrostat Subli (03/10/25 16:00) Vital Signs Date Time Temp Pulse Resp B/P (MAP) Pulse Ox O2 Delivery O2 Flow Rate FiO2 03/10/25 13:36 98.9 89 20 101/67 (78) 93 98.9 03/10/25 11:09 89 18 95 Room Air 03/10/25 11:09 90 18 131/78 (95) 95 03/10/25 11:04 99.3 98 17 135/77 (96) 96 99.3 Laboratory Tests Test 03/10/25 11:21 White Blood Count 10.7 10^3/uL (4.4-10.8) Medications Medications Dose Ordered Sig/Diana Route Start Time Stop Time Status Last Admin Dose Admin Acetaminophen/ Hydrocodone Bitart 1 tab ONCE ONCE PO 03/10/25 12:45 03/10/25 13:32 DC 03/10/25 13:50 1 TAB Assessment/Plan Assessment/Plan Fracture of ulnar styloid Displaced fracture of left ulna styloid process, initial encounter for closed fracture Radius distal fracture Unspecified fracture of the lower end of left radius, initial encounter for closed fracture Plan 1. Admit to med surge unit 2. Breathing treatment 3. Pain control management 4. Management of fluids and electrolytes 5. Consultation for orthopedic 6. Diagnostic tests left wrist x-ray 7. DVT prophylaxis-on SCDs 8. Repeat labs CBC, CMP in a.m. 9. Continue with current medical management 10. Treatment plan discussed with patient and RN. Patient verbalized understanding. Plan discussed with: Patient, Other (RN) My Orders Orders - RALF MATIAS DNP Procedure Category Date Status Time * Orthopedic Consult CONS 03/10/25 Transmitted 12:57 Allergies SIA 03/10/25 In Process 12:57 Code Status CODE 03/10/25 Transmitted 12:57 2 Gm Sodium Diet DIET 03/10/25 Transmitted Lunch Oxygen Per Hour RT 03/10/25 Transmitted 12:57 Hydrocodone-Acet PHA 03/10/25 In Process 5/325mg Tab (Maxwell 13:00 Ondansetron Hcl PHA 03/10/25 In Process (Zofran) 13:00 Docusate Sodium PHA 03/10/25 In Process Capsule (Colace 13:00 Complete Blood Count LAB 03/11/25 Verified 04:00 Comprehensive LAB 03/11/25 Verified Metabolic Panel 04:00 Condition: Serious SIA 03/10/25 In Process 12:57 Acetaminophen Tablet PHA 03/10/25 In Process (Tylenol Tablet) 13:00 Bedrest With Bathroom SIA 03/10/25 In Process Privileg 12:57 Morphine Sulfate PHA 03/10/25 In Process Injection 13:00 Sequential SIA 03/10/25 In Process Compression Device Admit ADMIT 03/10/25 Verified 15:48 Nitroglycerin PHA 03/10/25 Verified Sublingual (Ntrostat 16:00 Problem List: (1) Fracture of ulnar styloid (2) Displaced fracture of left ulna styloid process, initial encounter for closed fracture (3) Radius distal fracture (4) Unspecified fracture of the lower end of left radius, initial encounter for closed fracture Date of Service: Mar 10, 2025 Billing Provider: RALF MATIAS DNP Common Visit Codes: [id number] INP/OBS CARE (HIGH) RALF MATIAS DNP Mar 10, 2025 15:50
[2025-03-10] MEDS ORDERED: MORPHINE SULFATE INJ 2 MG/ml SYRG IV PRN (16:00)
[2025-03-10] MEDS ORDERED: NITROGLYCERIN 0.4 MG SL TAB SL PRN (16:00)
[2025-03-10 18:20] LABS: INR 0.92 (0.9-1.15); Prothrombin Time 9.8 sec (9.3-11.8)
[2025-03-10 20:30] VITALS: PULSE 80; TEMP 98.6; O2SAT 94
--- NOTE | 2025-03-10 20:39 | DVHINCON2 ---
Consult Note Consult Consult Note Chief Complaint: Left wrist pain and deformity after fall. --- History of Present Illness: Mr. Carlin Navarrete is a 44-year-old male who presented to the emergency room after a fall on an outstretched hand (FOOSH) injury involving the left upper extremity. The patient slipped and fell, landing on his left hand. He denies loss of consciousness, head trauma, or other injury. Emergency room evaluation included X-rays that revealed a left distal radius fracture. There were no open skin lesions at the time of injury or on evaluation. He denies numbness, tingling, or other neurologic symptoms in the left hand. The patient has not had any prior surgeries on this extremity. The patient denies any history of cardiac, pulmonary, renal, or hepatic disease. He also denies drug use and has no prior surgical history reported. --- Past Medical History: Denies cardiac, pulmonary, renal, or hepatic history. --- Physical Examination: At the time of orthopedic evaluation, the patient continues to have pain with any attempted range of motion, and examination is limited due to discomfort. He exhibits a visible wrist deformity. Neurovascular exam is grossly intact. There is no erythema, swelling, or ecchymosis, and skin is closed and intact. Left Wrist: Deformity present No open wounds, erythema, or ecchymosis Unable to range due to pain No swelling noted Neurovascular status intact distally Skin intact Other Extremities: No acute findings Systemic: No cardiac, pulmonary, or abdominal complaints reported XRAY LEFT WRIST displaced fractures of the styloid process of the ulna and distal radial metaphysi --- Assessment: 1. Displaced Left Distal Radius Fracture closed (S52.502A) --- Plan: Case and Xray reviewed with Dr. Meredith who recommended Surgery to be scheduled for tommorow with him RECOMMENDATION TO ER TEAM: Admit to orthopedic service. Patient to remain NPO after midnight in preparation for surgery. Order placed Consent obtained by ER provider Case discussed with Dr. Kim, who will perform open reduction internal fixation (ORIF) of the left distal radius fracture tomorrow Fracture is 3 weeks old. Risks benefits options and alternatives reviewed in depth. Risks include but not exclusive to bleeding infection nerve injury chronic pain blood clots cardiac and pulmonary complications need for further surgery tendon injury amputation and . Patient understands and wishes to proceed with surgery. Continue sugar-tong splinting until time of surgery. Monitor neurovascular status. Preoperative labs, imaging, and clearance per protocol by hospitalist/Medicine team or ER team All questions answered; patient agrees with the plan and is stable for admission Plan discussed with: Patient (bedside provider) Visit Coding Surgery Date of Service if different f: Mar 10, 2025 Billing Provider: MATEO NICOLE Surgery Visit Codes: 06817 - INP CONSULT <55 MIN MATEO NICOLE Mar 10, 2025 20:39 REGINE KIM MD Mar 11, 2025 13:20
[2025-03-10] MEDS: HYDROcodone-ACET 5/325MG TAB PO PRN (21:20)
[2025-03-10 21:57] VITALS: BP 108/66; PULSE 80; RESP 18; TEMP 98.6; O2SAT 95
[2025-03-10 23:34] VITALS: PULSE 75; RESP 16; O2SAT 97
[2025-03-11] VITALS (9 sets, daily range): BP systolic 119–131; BP diastolic 78–83; PULSE 63–70; RESP 14–18; TEMP 97–98.5; O2SAT 97–99
[2025-03-11 05:31] LABS: Hematocrit 38.9 % (41.0-53.0); Hemoglobin 13.3 g/dL (13.5-17.5); Mean Corpuscular Hemoglobin 35.1 pg (28.0-32.0); Mean Corpuscular Volume 102.6 fL (80.0-100.0); Nucleated Red Blood Cells % 0.1 %
[2025-03-11 05:52] LABS: Alanine Aminotransferase 19 U/L (7-40); Albumin 3.8 g/dL (3.2-4.8); Alkaline Phosphatase 97 U/L (46-116); Anion Gap 5 (5-15); BUN/Creatinine Ratio 7.5 (10.0-20.0); Calcium 9.7 mg/dL (8.7-10.4); Carbon Dioxide 26 mmol/L (20-31); Glucose 95 mg/dL (74-106); Potassium 4.3 mmol/L (3.5-5.1); Sodium 140 mmol/L (136-145); Total Protein 6.1 g/dL (5.7-8.2)
[2025-03-11 05:53] LABS: Bilirubin, Total 0.4 mg/dL (0.2-1.0)
[2025-03-11 06:00] LABS: Blood Urea Nitrogen 7 mg/dL (9-23); Chloride 109 mmol/L (98-107)
[2025-03-11] MEDS: MORPHINE SULFATE INJ 2 MG/ml SYRG IV PRN (11:05)
[2025-03-11] MEDS: ONDANSETRON HCL 4 MG/2 ML VIAL IV PRN (11:05)
[2025-03-11] MEDS: ceFAZolin 2 GM/D5W50ml 50 ML IV ONE (12:25)
[2025-03-11] MEDS ORDERED: GLYCOPYRROLATE 0.2 MG/ML 1ML VIAL ONE (13:22)
[2025-03-11] MEDS ORDERED: PROPOFOL 10 MG/ML 20 ML IV ONE (13:22)
[2025-03-11] MEDS ORDERED: fentaNYL CITRATE 100 MCG/2 ML VL ONE (13:22)
[2025-03-11] MEDS ORDERED: ONDANSETRON HCL 4 MG/2 ML VIAL ONE (13:22)
[2025-03-11] MEDS ORDERED: KETOROLAC TROMETH 30 MG/ML 1ML VIAL ONE (13:22)
[2025-03-11] MEDS ORDERED: KETAMINE 50mg/ML 1ml syringe ONE (13:22)
[2025-03-11] MEDS ORDERED: MIDAZOLAM HCL 2MG/2ML 2ml VIAL (1mg/ml) ONE (13:22)
[2025-03-11] MEDS ORDERED: LIDOCAINE 2% (LOCAL ANESTH.) PF 5ml SDV ONE (13:22)
[2025-03-11] MEDS: HYDROmorphone HCL 2 MG/ML VL/or syr ONE (13:25)
[2025-03-11] MEDS: BUPIVACAINE 0.25% INJ 50ML VIAL ONE (13:57)
[2025-03-11] MEDS ORDERED: ceFAZolin 1GM/50ML 50 ML IV SCH (14:00)
[2025-03-11] MEDS ORDERED: HYDROmorphone HCL 2 MG/ML VL/or syr IV PRN (14:45)
[2025-03-11] MEDS ORDERED: ONDANSETRON HCL 4 MG/2 ML VIAL IV ONE (14:45)
[2025-03-11] MEDS ORDERED: ACETAMINOPHEN IV 1000 MG/100ML (10MG/ML) IV ONE (14:45)
--- NOTE | 2025-03-11 15:10 | DVH ---
FLUOROSCOPY TIME: 19 seconds TECHNIQUE: Intraoperative radiographs of the left wrist were obtained. COMPARISON: XY L WRIST 3+ VIEW XRAY on DOS: 03/10/25, XY L WRIST 3+ VIEW XRAY on DOS: 02/17/25 FINDINGS: Refer to intraoperative report for further evaluation. IMPRESSION: Refer to intraoperative report for further evaluation.
[2025-03-11] MEDS: ceFAZolin 1GM/50ML 50 ML IV SCH (17:38)
--- NOTE | 2025-03-11 23:19 | DVHPN2 ---
Subjective in bed resting Reviewed: H&P, Labs Changes from previous H/P or p: No Changes Eyes: No Pain, No Vision change, No Conjunctivae inflammation, No Eyelid inflammation, No Other, No Redness ENT: No Ear pain, No Ear discharge, No Nose pain, No Nose discharge, No Nose congestion, No Mouth pain, No Mouth swelling, No Throat pain, No Throat swelling, No Other Cardiovascular: No Chest Pain, No Palpitations, No Orthopnea, No Paroxysmal Noc. Dyspnea, No Edema, No Lt Headedness, No Other Respiratory: No Cough, No Dry, No Shortness of breath, No SOB with excertion, No Wheezing, No Hemoptysis, No Pleuritic Pain, No Sputum, No Other Gastrointestinal: No Nausea, No Vomiting, No Abdominal Pain, No Diarrhea, No Constipation, No Melena, No Hematochezia, No Other Genitourinary: No Dysuria, No Frequency, No Incontinence, No Hematuria, No Retention, No Other Musculoskeletal: other (left arm pain); No neck pain, No shoulder pain, No arm pain, No back pain, No hand pain, No leg pain, No foot pain Skin: No Rash, No Lesions, No Jaundice, No Bruising, No Other Objective Vitals Vital Signs Date Time Temp Pulse Resp B/P (MAP) Pulse Ox O2 Delivery O2 Flow Rate FiO2 03/11/25 22:13 64 18 131/80 03/11/25 21:00 97.9 97 97.9 03/11/25 15:09 Room Air 0 95 Intake/Output Intake and Output 03/11/25 07:00 Intake Total 100 ml Balance 100 ml Intake Oral 100 ml # Voids 2 General Appearance: Alert, Oriented X3 Lungs: Clear to auscultation Cardiovascular: Regular rate, Normal S1, Normal S2 Abdomen: Normal bowel sounds Medications Current Medications Medications Dose Ordered Sig/Diana Route Start Time Stop Time Status Last Admin Dose Admin Acetaminophen/ Hydrocodone Bitart 1 tab Q4HP PRN PO 03/10/25 13:00 03/11/25 17:38 1 TAB Ondansetron HCl 4 mg Q4HP PRN IV 03/10/25 13:00 03/11/25 11:05 4 MG Docusate Sodium 100 mg BIDPRN PRN PO 03/10/25 13:00 Acetaminophen 650 mg Q6HP PRN PO 03/10/25 13:00 Morphine Sulfate 2 mg Q4HPRN PRN IV 03/10/25 13:00 03/11/25 22:13 2 MG Nitroglycerin 0.4 mg Q5MINP PRN SL 03/10/25 16:00 Morphine Sulfate 2 mg Q30M PRN IV 03/10/25 16:00 Cefazolin Sodium 50 ml @ 100 mls/hr Q8H IV 03/11/25 18:00 03/12/25 10:29 03/11/25 17:38 100 MLS/HR Laboratory Results Laboratory Tests 03/11/25 05:12 Chemistry Test 03/11/25 05:12 Albumin 3.8 g/dL (3.2-4.8) Calcium Level 9.7 mg/dL (8.7-10.4) Total Protein 6.1 g/dL (5.7-8.2) LFT Test 03/11/25 05:12 Alanine Aminotransferase (ALT) 19 U/L (7-40) Alkaline Phosphatase 97 U/L (46-116) Aspartate Amino Transferase (AST) 22 U/L (13-40) Total Bilirubin 0.4 mg/dL (0.2-1.0) Urinalysis Test 03/10/25 11:00 Urine Color Light-yellow (Yellow) Urine Clarity Clear (Clear) Urine pH 5.5 (5.0-9.0) Urine Specific [place] 1.017 (1.001-1.035) Urine Protein Negative (Negative) Urine Ketones Negative (Negative) Urine Blood Negative /uL (Negative) Urine Nitrite Negative (Negative) Urine Bilirubin Negative (Negative) Urine Urobilinogen Normal mg/dL (Negative) Urine Leukocyte Esterase Negative /uL (Negative) Urine RBC None seen /hpf (0 - 3) Urine Microscopic WBC 1 /HPF (0-3) Urine Squamous Epithelial Cells None seen /hpf (<5) Urine Bacteria None seen /hpf (None Seen) Urine Mucus Few (None Seen) Urine Sperm Present /hpf (None Seen) Urine Glucose Normal mg/dL (Normal) Assessment/Plan Assessment/Plan Fracture of ulnar styloid Displaced fracture of left ulna styloid process, initial encounter for closed fracture Radius distal fracture Unspecified fracture of the lower end of left radius, initial encounter for closed fracture Going to OR today per ortho Plan discussed with: Patient Date of Service: Mar 11, 2025 Billing Provider: LORELEI,VINCENZO J MD Common Visit Codes: [id number] INP/OBS CARE(HIGH) VINCENZO MOSELEY MD Mar 11, 2025 23:19
[2025-03-12 01:00] VITALS: BP 132/89; PULSE 74; RESP 17; TEMP 98.2; O2SAT 98
[2025-03-12 05:00] VITALS: BP 121/86; PULSE 80; RESP 18; TEMP 98.2; O2SAT 98
[2025-03-12 08:00] VITALS: PULSE 72; RESP 18; O2SAT 98
[2025-03-12 09:00] VITALS: BP 121/83; PULSE 72; RESP 18; TEMP 98.4; O2SAT 98
[2025-03-12 10:16] LABS: Hepatitis B Surface Antigen Negative (Negative)
[2025-03-12 10:48] LABS: Hepatitis C Antibody Negative (Negative)
[2025-03-12] MEDS ORDERED: HYDR-4798 PO ×2 (11:44→16:47)
[2025-03-12 13:00] VITALS: BP 114/74; PULSE 77; RESP 16; TEMP 98.4; O2SAT 98
--- NOTE | 2025-03-12 17:30 | DVHOP2 ---
Operative Report - 2 Report Details Date: 03/11/25 Preop Diagnosis: Left displaced distal radius fracture over 3 weeks old Postop Diagnosis: Left displaced distal radius fracture over 3 weeks old Surgeon: Hebert Kelly MD Anesthesiologist: Lloyd REDDY Anesthesia: General Implant: ITS Volar distal radius plate -- mix of locking/nonlocking screws Consent: The patient was informed of the risks and benefits of the procedure. These include but are not limited to complications of anesthesia, postoperative infection, incomplete relief of symptoms, recurrence of symptoms, damage to blood vessels, nerves and tendons, deep venous thrombosis, pulmonary embolism and possible need for repeat surgery in the future. Estimated Blood Loss: 5 cc Name of Procedure Performed 1. Open reduction internal fixation of left distal radiaus fracture - intraarticular greater than 3 part 2. Malunion fracture callus takedown 3. Intraop Fluoroscopy Procedure Details Procedure Details: CLINICAL SUMMARY: 44 yo M with hx of drug use with hx of left comminuted and displaced left distal radius fracture over 3 weeks ago. Patient as supposed to have surgery at [facility] but they cancelled his surgery due to recent drug use. Risks/benefits/options/alternatives were discussed at length with patient and his family. Nonoperative versus operative management was presented to her. Risks include but not exclusive to bleeding, infection, nerve injury, tendon or ligament damage, hardware failure, nonunion, malunion, need for further surgery, amputation, DVT, and . he understood these risks and wished to proceed with surgery. OPERATION: The patient was brought from the manager medic[facility] marketing unit and placed on the operating table in a supine position and administered general anesthetic. To urniquet was placed around the left upper extremity. Once adequate anesthesia had been obtained, the left upper extremity was prepped and draped in the usual sterile manner. A time out was performed. The upper extremity was then elevated and exsanguinated using an Esmarch dressing. The tourniquet was elevated to 250 mmHg. At this time an approximately 8 cm longitudinal incision was then made overlying the right flexor carpi radialis tendon from the flexion crease to the wrist proximally. This was carried down to the flexor carpi radialis, which was then retracted ulnarly. The floor of the flexor carpi radialis was then incised exposing the flexor pronator muscles. The flexor pollicis longus was retracted ulnarly and the pronator quadratus was longitudinally incised 1 cm from its origin. It was then elevated off of the fracture site exposing the fracture site, which was dorsally displaced. Patient had a signficant amount of callus and fibrous malunion at the site of fracture. I spent half the time taking down the malunion with ronjeur and osteotomes to make both sides mobile. This was an intraarticular three-part fracture. Under image control, the volar pieces and dorsal pieces were then carefully manipulated and reduced. Then, 2.06 two-inch K-wires were drilled radial into the volar ulnar fragment and then a second K- wire was then drilled from the dorsal radial to the dorsal ulnar piece. The fracture was then manipulated. The fracture ends were copiously irrigated with normal saline and curetted and then the fracture was reduced in the usual fashion by recreating the defect and distracting it. Further K-wires were then placed through the radial styloid into the proximal fragment. Patient had significant comminution. A volar distal radius plate was then picked and using two K-wires it was well seated. We checked with fluoro. We then used a combination of locking/nonlocking screws and pegs. There was excellent reduction of the fragments and the fracture; excellent reduction of the intraarticular component and the fracture. Incision was then copiously irrigated with normal saline. Homeostasis was maintained with electrocautery. The pronator quadratus was closed with 3-0 Vicryl and the above skin incisions were closed proximally with 3-0 nylon. A large bulky dressing was then applied with a volar short-arm splint maintaining the wrist in neutral position. The tourniquet was let down. The fingers were immediately pink. The patient was awakened and taken to the recovery room in good condition. There were no operative complications. The patient tolerated the procedure well. Condition Good Disposition Still a Patient HEBERT KELLY MD Mar 12, 2025 17:30
--- NOTE | 2025-03-28 19:01 | DVHDS2 ---
Discharge Summary Date of Admission Mar 10, 2025 at 15:48 Date of Discharge: Mar 12, 2025 Labs/Diagnostic Data: Laboratory Results Test 03/11/25 05:12 03/10/25 17:44 03/10/25 11:21 03/10/25 11:00 White Blood Count 7.6 10^3/uL (4.4-10.8) Red Blood Count 3.79 10^6/uL (4.5-5.90) Hemoglobin 13.3 g/dL (13.5-17.5) Hematocrit 38.9 % (41.0-53.0) Mean Corpuscular Volume 102.6 fL (80.0-100.0) Mean Corpuscular Hemoglobin 35.1 pg (28.0-32.0) Mean Corpuscular Hemoglobin Concent 34.3 g/dL (32.0-36.0) Red Cell Distribution Width 14.8 % (11.8-14.3) Platelet Count 331 10^3/uL (140-450) Mean Platelet Volume 7.8 fL (6.9-10.8) Neutrophils (%) (Auto) 50.0 % (37.0-80.0) Lymphocytes (%) (Auto) 35.8 % (10.0-50.0) Monocytes (%) (Auto) 9.1 % (0.0-12.0) Eosinophils (%) (Auto) 4.0 % (0.0-7.0) Basophils (%) (Auto) 1.1 % (0.0-2.0) Neutrophils # (Auto) 3.8 10 ^3/uL (1.6-8.6) Lymphocytes # (Auto) 2.7 10 ^3/uL (0.4-5.4) Monocytes # (Auto) 0.7 10 ^3/uL (0-1.3) Eosinophils # (Auto) 0.3 10 ^3/uL (0-0.8) Basophils # (Auto) 0.1 10 ^3/uL (0-0.2) Nucleated Red Blood Cells 0.1 % Sodium Level 140 mmol/L (136-145) Potassium Level 4.3 mmol/L (3.5-5.1) Chloride Level 109 mmol/L (98-107) Carbon Dioxide Level 26 mmol/L (20-31) Anion Gap 5 (5-15) Blood Urea Nitrogen 7 mg/dL (9-23) Creatinine 0.93 mg/dL (0.700-1.30) Glomerular Filtration Rate Calc 104 mL/min (>90) BUN/Creatinine Ratio 7.5 (10.0-20.0) Serum Glucose 95 mg/dL (74-106) Calcium Level 9.7 mg/dL (8.7-10.4) Total Bilirubin 0.4 mg/dL (0.2-1.0) Aspartate Amino Transferase (AST) 22 U/L (13-40) Alanine Aminotransferase (ALT) 19 U/L (7-40) Alkaline Phosphatase 97 U/L (46-116) Total Protein 6.1 g/dL (5.7-8.2) Albumin 3.8 g/dL (3.2-4.8) Prothrombin Time 9.8 sec (9.3-11.8) Prothrombin Time INR 0.92 (0.9-1.15) Hemoglobin A1c 4.9 % A1C (<5.7) Hepatitis B Surface Antigen Negative (Negative) Hepatitis C Antibody Negative (Negative) Urine Color Light-yellow (Yellow) Urine Clarity Clear (Clear) Urine pH 5.5 (5.0-9.0) Urine Specific [place] 1.017 (1.001-1.035) Urine Protein Negative (Negative) Urine Ketones Negative (Negative) Urine Blood Negative /uL (Negative) Urine Nitrite Negative (Negative) Urine Bilirubin Negative (Negative) Urine Urobilinogen Normal mg/dL (Negative) Urine Leukocyte Esterase Negative /uL (Negative) Urine RBC None seen /hpf (0 - 3) Urine Microscopic WBC 1 /HPF (0-3) Urine Squamous Epithelial Cells None seen /hpf (<5) Urine Bacteria None seen /hpf (None Seen) Urine Mucus Few (None Seen) Urine Sperm Present /hpf (None Seen) Urine Glucose Normal mg/dL (Normal) Other Laboratory Tests 03/11/25 05:12 Brief Hx & Hospital Course: 44-year-old male who denies past medical history presented to [facility] ED with complaint of left wrist pain. Patient reports that he fell off a ladder 3 weeks ago and was supposed to undergo surgery for left distal radius fracture, however, given eligibility of insurance, he was unable to have the surgery done at [facility]. Patient was seen and evaluated in the ED, laboratory data shows WBC 10.7, platelets 386, sodium 138, potassium 3.8, BUN 10, creatinine 1.04, glucose 189, hemoglobin A1c 4.9, calcium 10.1, blood pressure 131/78, heart rate 90, temperature 99.3 F, O2 saturation 95% on room air. Left wrist x- ray revealing overlying cast obscures bony and soft tissue detail; redemonstration of displaced fractures of the styloid process of the ulna and distal radial metaphysis. Please see medication orders section in the computer. On my assessment, patient denied chest pain, no headache, no dizziness, no shortness of breaths, no nausea, no vomiting, no fever, no chills. Patient was admitted for further evaluation and medical management. Had surgery per ortho and discharged Condition at Discharge: Good Final Diagnosis/Problems List Fracture of ulnar styloid Displaced fracture of left ulna styloid process, initial encounter for closed fracture Radius distal fracture Unspecified fracture of the lower end of left radius, initial encounter for closed fracture Discharge Disposition: Home Discharge Instruct/Medications Diet: Regular Activity: No Restrictions, As Tolerated Follow Up/Referral: ortho in 2 weeks Medications: norco Scheduled Hydrocodone-Acetaminophen (Hydrocodone Bitartrate/AC 10-325 mg), 1 TAB PO TID Discharge Statement: "Patient was advised to return to the ER or call 911 if any headaches, dizziness, shortness of breath, chest pain, abdominal pain, bleeding, fevers, or worsening of medical condition. Patient was counseled about treatment plan, medications, possible side effects, patientverbalized understanding. All questions were answered to the best of my ability. This discharge took greater then 30 minutes in planning, reviewing documentation, counseling the patient, and discussing with other team members." ASSESSMENT ASSESSMENT Assessment Left displaced distal radius fracture over 3 weeks old Date of Service: Mar 12, 2025 Billing Provider: VINCENZO MOSELEY MD Common Visit Codes: 30732-BSE/OBS DISCH DAY >30min VINCENZO MOSELEY MD Mar 28, 2025 19:01
== END 2025-03-12 14:49 | disposition home or self-care (01) | DRG 315 ==
LOC: ER 10:35 → OVERFLOW 15:48 → EAST 23:34
PROVIDERS: ADMIT Hospitalist; ATTEND Hospitalist
PROC: 0PSJ04Z Reposition Left Radius with Internal Fixation Device, Open Approach (ICD-10-PCS; principal; 2025-03-11 13:17)
DX: S52.512A Displaced fracture of left radial styloid process, initial encounter for closed fracture (principal); S52.612A Displaced fracture of left ulna styloid process, initial encounter for closed fracture; W11.XXXA Fall on and from ladder, initial encounter; Y93.89 Activity, other specified; Y92.89 Other specified places as the place of occurrence of the external cause; Y99.8 Other external cause status
CPT/HCPCS: 36415; 73100; 73110; 76000; 80048; 80053; 81001; 83036; 85025; 85610; 86803; 86850; 86900; 86901; 87340; G0378; J0131; J1100; J1885; J2003; J2250; J2405; J2704; J3490